=== PATIENT | female | born 1985 | race Two or more races ===

== ENCOUNTER → 2022-01-23 | Day surgery (SDC) | payer OTHER ==
[~2022-01-23] MED LIST: AMPICILLIN TRI500 MG PO; COZAAR100 MG PO; OBTREX DHA COM1 EACH PO
== END | disposition home or self-care (01) ==
LOC: ADM 01-21 08:15 → CIR.AMB 06:42
PROVIDERS: ATTEND Obstetrics & Gynecology Gynecology
DX: O02.1 Missed abortion (principal); I10 Essential (primary) hypertension

== ENCOUNTER 2023-03-25 14:43 | Outpatient (CLI) | payer OTHER | END 2023-03-25 15:40 | disposition home or self-care (01) | LOC: NST 14:43 | PROVIDERS: ATTEND Obstetrics & Gynecology Maternal & Fetal Medicine | DX: Z34.83 Encounter for supervision of other normal pregnancy, third trimester (principal) ==

== ENCOUNTER 2023-04-14 08:18 | Outpatient (CLI) | payer OTHER | END 2023-04-14 09:33 | disposition home or self-care (01) | LOC: NST 08:18 | PROVIDERS: ATTEND Obstetrics & Gynecology | DX: Z34.83 Encounter for supervision of other normal pregnancy, third trimester (principal) ==

== ENCOUNTER 2023-04-21 12:30 | Outpatient (CLI) | payer OTHER | END 2023-04-21 13:19 | disposition home or self-care (01) | LOC: NST 12:30 | PROVIDERS: ATTEND Obstetrics & Gynecology Gynecology | DX: Z34.83 Encounter for supervision of other normal pregnancy, third trimester (principal) ==

== ENCOUNTER 2023-04-29 14:33 | Inpatient (IN) | payer OTHER ==
[~2023-04-29] VITALS: Ht 162.6 cm; Wt 88.9 kg
[2023-04-29] MEDS ORDERED: TRANDATE300 MG PO (16:00)
[2023-04-29 16:20] LABS: HEMATOCRIT 36.7 % (36.0-45.00); HEMOGLOBIN 12.6 g/dL (12.0-15.00); MEAN CELL VOLUME 87.1 fL (80.00-100.00); MEAN CORPUSCULAR HEMOGLOBIN 29.9 pg (27.00-32.0); MEAN CORPUSCULAR HGB CONC 34.3 g/dl (32.0-36.0); PH,URINE 5.5 (5.0-8.0); PLATELET COUNT 259 K/uL (150-450); RED BLOOD COUNT 4.21 M/uL (4.00-6.00); RED CELL DISTRIBUTION WIDTH 14.6 % (11.5-14.5); URINE APPEARANCE Clear; URINE BILIRRUBIN Negative (NEGATIVE); URINE BLOOD Negative; URINE COLOR Yellow; URINE GLUCOSE Negative (NEGATIVE); URINE LEUKOCYTE Negative; URINE NITRATE Negative; URINE PROTEIN Negative (NEGATIVE); URINE UROBILINOGEN 0.2 E.U./dl
[2023-04-29 16:21] LABS: URINE BACTERIA 132.2 uL (0.0-1933); URINE EPITHELIAL CELLS 14.2 uL (0.0-38.8); URINE RBC 15.3 uL (0.0-20.8); URINE WBC 9.5 uL (0.0-23.2)
[2023-04-29 16:45] LABS: INR < 0.93; PARTIAL THROMBOPLASTIN TIME 25.9 SECONDS (22.0-34.0); PROTHROMBIN TIME 9.8 SECONDS (9.0-11.5)
[2023-04-29 16:53] LABS: ALBUMIN 2.8 gm/dL (3.4-5.0); BILIRUBIN TOTAL 0.26 mg/dL (0.3-1.2); CALCIUM 9.1 mg/dL (8.5-10.1); CREATININE SERUM 0.64 mg/dL (0.55-1.02); GFR 103.85; GLOBULINA 3.1 G/DL (2.4-3.5); POTASSIUM 4.17 mEq/L (3.5-5.1); TOTAL PROTEIN 5.9 gm/dL (6.4-8.2)
[2023-05-01 06:38] LABS: HEMATOCRIT 34.1 % (36.0-45.00); HEMOGLOBIN 11.7 g/dL (12.0-15.00); MEAN CELL VOLUME 87.7 fL (80.00-100.00); MEAN CORPUSCULAR HEMOGLOBIN 30.1 pg (27.00-32.0); MEAN CORPUSCULAR HGB CONC 34.3 g/dl (32.0-36.0); PLATELET COUNT 224 K/uL (150-450); RED BLOOD COUNT 3.89 M/uL (4.00-6.00)
== END 2023-05-02 17:08 | disposition home or self-care (01) | DRG 787 ==
LOC: LDR 14:33 → OB/GYN 14:33 → O/R 04-30 17:18 → OB/GYN 04-30 18:12
PROVIDERS: ADMIT Obstetrics & Gynecology Gynecology; ATTEND Obstetrics & Gynecology Gynecology
PROC: 3E0P7VZ Introduction of Hormone into Female Reproductive, Via Natural or Artificial Opening (ICD-10-PCS; 2023-04-29)
PROC: 4A1HXCZ Monitoring of Products of Conception, Cardiac Rate, External Approach (ICD-10-PCS; 2023-04-29)
PROC: 3E033VJ Introduction of Other Hormone into Peripheral Vein, Percutaneous Approach (ICD-10-PCS; 2023-04-30)
PROC: 10D00Z1 Extraction of Products of Conception, Low, Open Approach (ICD-10-PCS; principal; 2023-04-30 14:50)
DX: O61.0 Failed medical induction of labor (principal); O10.02 Pre-existing essential hypertension complicating childbirth; Z3A.38 38 weeks gestation of pregnancy; Z37.0 Single live birth; Z20.822 Contact with and (suspected) exposure to COVID-19